=== PATIENT | female | born 1990 | race Caucasian/White ===

== ENCOUNTER 2021-09-17 17:51 | Inpatient (IN) | payer BC ==
[~2021-09-17] VITALS: Ht 165.1 cm; Wt 59.4 kg
--- NOTE | 2021-09-17 18:19 | NUR ---
URINE COLLECTED AND SENT TO THE LAB
[2021-09-17] MEDS ORDERED: IV NS 0.9% 1,000 ML BAG IV ONE (18:30)
[2021-09-17] MEDS ORDERED: ONDANSETRON HCL/PF - ER 4 MG/2 ML VIAL IV ONE (18:30)
[2021-09-17] MEDS ORDERED: MORPHINE SULFATE INJ 2 MG/ML DISP.SYRIN IV ONE ×2 (18:30→19:30)
[2021-09-17 18:42] LABS: BILIRUBIN,URINE NEGATIVE (NEGATIVE); COLOR,URINE YELLOW (YELLOW); LEUKOCYTE ESTERASE ,URINE NEGATIVE (NEGATIVE); NITRITE, URINE NEGATIVE (NEGATIVE); PROTEIN,URINE NEGATIVE (NEGATIVE); UGLUCOSE NEGATIVE (NEGATIVE); UROBILINOGEN,URINE 0.2 EU/dL (0.2)
[2021-09-17] MEDS ORDERED: ONDANSETRON HCL/PF 4 MG/2 ML VIAL ONE (18:46)
[2021-09-17] MEDS ORDERED: MORPHINE SULFATE INJ 4 MG/ML DISP.SYRIN ONE (18:47)
[2021-09-17 18:57] LABS: BACTERIA,URINE Few /HPF (None Seen); SQUAMOUS EPITHELIAL CELL,UR Few /HPF (None Seen); WBC,URINE 0-2 /HPF (0-3)
[2021-09-17 19:18] LABS: BASOPHILS % (AUTO) 0.4 % (0.0-2.0); EOSINOPHILS % (AUTO) 0.1 % (0.0-6.0); HEMATOCRIT 43 % (33-45); HEMOGLOBIN 14.1 g/dL (11.5-14.8); LYMPHOCYTES # (AUTO) 1.7 K/uL (0.8-4.8); LYMPHOCYTES % (AUTO) 15.5 % (20.0-44.0); MEAN CORPUSCULAR HGB CONC 33 g/dl (31.0-36.0); MEAN CORPUSCULAR VOLUME 92 fL (82-100); MONOCYTES # (AUTO) 0.5 K/uL (0.1-1.30); MONOCYTES % (AUTO) 4.9 % (2.0-12.0); NEUTROPHILS # (AUTO) 8.6 K/uL (1.8-8.9); NEUTROPHILS % (AUTO) 79.1 % (43.0-81.0); PLATELET COUNT (AUTO) 177 K/uL (150-450); RED BLOOD CELL COUNT(AUTO) 4.68 MIL/uL (4.0-5.2); WHITE BLOOD COUNT (AUTO) 10.9 K/uL (4.3-11.0)
[2021-09-17 19:20] LABS: CALCIUM, SERUM 8.7 mg/dL (8.5-10.1); CREATININE 0.8 mg/dL (0.6-1.3); POTASSIUM 3.2 mmol/L (3.5-5.1)
[2021-09-17] MEDS ORDERED: MORPHINE SULFATE INJ 2 MG/ML DISP.SYRIN ONE (19:27)
--- NOTE | 2021-09-17 19:35 | NUR ---
pt bib self c/o rlq pain that is constant and non radiating since 09/16 1900. no alleviating factors. pt breathing even and unlabored changed into a gown and placed on monitor all vital signs stable.WEB SITE ADMIN was at bedside for eval.
[2021-09-17] MEDS ORDERED: FLAGYL/NS RTU 500 MG/100 ML PIGGYBACK IV ONE (20:00)
[2021-09-17] MEDS ORDERED: POTASSIUM CHLORIDE 20 MEQ TAB.PRT.SR PO ONE ×2 (20:00→20:18)
[2021-09-17] MEDS ORDERED: CEFTRIAXONE 1GM BAG (ER ONLY) 1 GM/50 ML PIGGYBACK IV ONE (20:00)
[2021-09-17] MEDS ORDERED: POTASSIUM CL. PREMIX PERIPHER. 50 ML ONE ×2 (20:18→22:15)
[2021-09-17] MEDS ORDERED: CEFTRIAXONE 2 G in IV D5W 100 ML IV SCH (20:30)
[2021-09-17] MEDS: POTASSIUM CL. PREMIX PERIPHER. 50 ML IV SCH ×2 (20:35→22:25)
[2021-09-17] MEDS ORDERED: METRONIDAZOLE 500MG/ NS 100ML 100 ML IV ONE (21:02)
[2021-09-17] MEDS ORDERED: HYDROMORPHONE 1 MG/1 ML DISP.SYRIN IV ONE (21:30)
[2021-09-17] MEDS ORDERED: HYDROMORPHONE 1 MG/1 ML DISP.SYRIN ONE (21:42)
--- NOTE | 2021-09-17 21:55 | NUR ---
called to give report rn will call back
--- NOTE | 2021-09-17 22:09 | NUR ---
REPORT GIVEN TO TONY MARTÍNEZ
[2021-09-17] MEDS ORDERED: ZOLPIDEM TARTRATE 5 MG TABLET PO PRN (22:30)
[2021-09-17] MEDS ORDERED: ACETAMINOPHEN 325 MG TABLET PO PRN (22:30)
[2021-09-17] MEDS ORDERED: ONDANSETRON HCL/PF 4 MG/2 ML VIAL IVP PRN (22:30)
[2021-09-17] MEDS ORDERED: Z GUARD REMEDY 2 OZ OINT TP PRN (22:30)
--- NOTE | 2021-09-17 22:46 | NUR ---
PT TRANSPORTED BY EMT TO [address] [facility] ALL VSS
--- NOTE | 2021-09-17 22:50 | NUR ---
MS DISPLAY AND BANNER DESIGNER NOTE RECEIVED PT FROM E.Eryn VIA [facility] TO [id number]. DX: ACUTE APPENDICITIS. PT ALERT, A/OX4, ABLE TO MAKE NEEDS KNOWN. PT AMBULATED TO BR WITH STEADY GAIT. VERBALIZED ABD. PAIN IS TOLERABLE AT THIS TIME. DENIES SOB. ON ROOM AIR AND CLAIRE WELL. RESPIRATIONS EVEN/UNLABORED. IV SITE: L-AC #20 INTACT/PATENT/FLUSHES WELL. ORIENTED TO ROOM AND STAFF AND INSTRUCTED TO USE CALL LIGHT FOR ANY ASSISTANCE NEEDED. PT VERBALIZED UNDERSTANDING. NO ACUTE DISTRESS NOTED. SAFETY MEASURES IN PLACE, BED IN LOWEST LOCKED POSITION, S/R UP X2, CALL LIGHT WITHIN REACH. WILL CONT TO MONITOR.
--- NOTE | 2021-09-17 23:55 | NUR ---
RN NOTE ROOM CHANGE/TRANSFER TO [id number] PER [employer]OLIN PLANT OPERATOR
--- NOTE | 2021-09-18 | NUR ---
RN NOTE TEMP 102.1. DENIES CHILLS. DENIES SOB. PT STATES, "I HAD THE COVID BOOSTER YESTERDAY." COOLING MEASURES WITH COLD COMPRESS TO FOREHEAD ONLY PER PT REQUEST. TYLENOL 650MG PO GIVEN. WILL CONT TO MONITOR.
[2021-09-18] MEDS ORDERED: PIPERACILLIN /TAZOBACTAM 3.375 G VIAL IV ONE ×2 (00:08→05:40)
[2021-09-18] MEDS: IV LR 1000 ML 1,000 ML IV PRN ×2 (00:12→18:21)
[2021-09-18] MEDS: PIPERACILLIN /TAZOBACTAM 3.375 G in IV D5W 50 ML IV SCH ×5 (00:13→23:02)
[2021-09-18] MEDS: MORPHINE SULFATE INJ 2 MG/ML DISP.SYRIN IV PRN ×3 (02:21→12:53)
--- NOTE | 2021-09-18 04:16 | NUR ---
RN NOTE TEMP 98.2
[2021-09-18 06:42] LABS: BASOPHILS % (AUTO) 0.5 % (0.0-2.0); EOSINOPHILS % (AUTO) 0.5 % (0.0-6.0); HEMATOCRIT 35 % (33-45); HEMOGLOBIN 11.8 g/dL (11.5-14.8); LYMPHOCYTES # (AUTO) 1.6 K/uL (0.8-4.8); LYMPHOCYTES % (AUTO) 19.9 % (20.0-44.0); MEAN CORPUSCULAR HGB CONC 34 g/dl (31.0-36.0); MEAN CORPUSCULAR VOLUME 92 fL (82-100); MONOCYTES # (AUTO) 0.5 K/uL (0.1-1.30); MONOCYTES % (AUTO) 5.9 % (2.0-12.0); NEUTROPHILS # (AUTO) 5.8 K/uL (1.8-8.9); NEUTROPHILS % (AUTO) 73.2 % (43.0-81.0); PLATELET COUNT (AUTO) 136 K/uL (150-450); RED BLOOD CELL COUNT(AUTO) 3.78 MIL/uL (4.0-5.2)
--- NOTE | 2021-09-18 06:45 | NUR ---
MS RN CLOSING NOTE PT RESTING IN BED, EASILY AROUSABLE TO STIMULI. RESPIRATIONS EVEN AND UNLABORED. REPORTS TOLERABLE PAIN AT THIS TIME. IV SITE: L-AC #20 INTACT/PATENT, RUNNING LR @80ML/HR. CLAIRE WELL. NO ACUTE DISTRESS NOTED. SAFETY MEASURES MAINTAINED. ALL NEEDS ATTENDED TO.
[2021-09-18 06:56] LABS: CALCIUM, SERUM 7.8 mg/dL (8.5-10.1); CREATININE 0.7 mg/dL (0.6-1.3); MAGNESIUM 2.2 mg/dL (1.8-2.4); PHOSPHORUS 2.7 mg/dL (2.5-4.9); POTASSIUM 4.3 mmol/L (3.5-5.1)
[2021-09-18] MEDS ORDERED: [UNRECOGNIZED DRUG - CODE] VG (07:13)
--- NOTE | 2021-09-18 07:30 | NUR ---
MS RN OPENING NOTES RECEIVED PATIENT ON BED, AWAKE AND A/O X4. ON ROOM AIR TOLERATING WELL. NO SOB NOTED. NOT IN DISTRESS. WITH COMPLAINTS OF PAIN AT RLQ AT THE SCALE OF 9/10. COMFORT MEASURES PROVIDED. WITH IV ACCESS AT LEFT AC G20 WITH IVF PLR AT 80ML/HR AND AT RIGHT AC, SALINE LOCKED. BOTH IV LINES ARE PATENT AND INTACT. FOR APPENDECTOMY TODAY. SAFETY MEASURES IN PLACE. CALL LIGHT WITHIN REACH. BED ON LOWEST AND LOCKED POSITION, SIDE RAILS UP X2. WILL CONTINUE TO MONITOR.
[2021-09-18] MEDS ORDERED: BUPIVACAINE MPF 0.5% W/EPI INJ 30 ML VIAL ONE (07:45)
[2021-09-18] MEDS ORDERED: LIDOCAINE 1% INJ 50 ML MDV IJ ONE (07:45)
[2021-09-18] MEDS ORDERED: BACITRACIN OPHTH OINT 3.5 GM TUBE ONE (07:47)
[2021-09-18] MEDS ORDERED: BACITRACIN ZINC OINT (15 GM) 15 GM TUBE TP ONE (07:47)
[2021-09-18 08:00] VITALS: BP 97/61
--- NOTE | 2021-09-18 13:42 | NUR ---
RN NOTES PATIENT WAS PICKED UP BY OR PERSONNEL FOR EXPLORATORY LAPAROTOMY VS POSSIBLE OPEN APPENDECTOMY PROCEDURE. CONSENTS ALREADY SIGNED AND ALREADY DID PREOP CHECKLIST.
[2021-09-18] MEDS ORDERED: ROCURONIUM BROMIDE 50 MG/5 ML ONE (14:01)
[2021-09-18] MEDS ORDERED: MIDAZOLAM HCL 2 MG/2ML VIAL ONE (14:01)
[2021-09-18] MEDS ORDERED: FENTANYL PF 100MCG/2ML AMPUL ONE (14:01)
[2021-09-18] MEDS ORDERED: SCOPOLAMINE PATCH 1 MG/72HR TD ONE (14:02)
[2021-09-18 15:55] VITALS: BP 99/50
--- NOTE | 2021-09-18 15:55 | NUR ---
MS RN NOTES RECEIVED PATIENT FROM OR ENDORSED BY NURSE COE POST APPENDECTOMY. CHECKED VITAL SIGNS: BP-92/51, KY-85, RR-18, TEMP-98.7 AND O2 SAT-100%. PATIENT IS RESTING AND IS EASY TO AROUSE. WILL CONTINUE TO MONITOR.
[2021-09-18 16:10] VITALS: BP 96/52
[2021-09-18] MEDS: IBUPROFEN 400 MG TABLET PO SCH ×2 (16:16→23:01)
[2021-09-18] MEDS: ACETAMINOPHEN 325 MG TABLET PO SCH ×2 (16:16→23:01)
[2021-09-18] MEDS: GABAPENTIN 100 MG CAPSULE PO SCH ×2 (16:16→23:01)
[2021-09-18 16:55] VITALS: BP 99/50
[2021-09-18 17:00] VITALS: BP 99/50
--- NOTE | 2021-09-18 18:28 | NUR ---
MS RN CLOSING NOTES PATIENT ON BED, AWAKE AND A/O X4 WITH MOM AND DAD AT BEDSIDE. S/P APPENDECTOMY. ON ROOM AIR TOLERATING WELL. NO SOB NOTED. NOT IN DISTRESS. WITH NO COMPLAINTS OF PAIN AT THIS TIME. COMFORT MEASURES PROVIDED. WITH IV ACCESS AT LEFT AC G20 WITH IVF PLR AT 80ML/HR AND AT RIGHT AC, SALINE LOCKED. BOTH IV LINES ARE PATENT AND INTACT. SAFETY MEASURES IN PLACE. CALL LIGHT WITHIN REACH. BED ON LOWEST AND LOCKED POSITION, SIDE RAILS UP X2. WILL ENDORSE TO NEXT SHIFT FOR BRET.
--- NOTE | 2021-09-18 19:50 | NUR ---
Patient awake, A&Ox4. Resting in bed, family member at bedside. Denies nausea at this time. States that pain is minimal and tolerable at this time. LAC 20G IV running LR at 80cc/hr. Will continue to monitor patient.
[2021-09-18 20:00] VITALS: BP 98/66
[2021-09-19] MEDS: PIPERACILLIN /TAZOBACTAM 3.375 G in IV D5W 50 ML IV SCH ×2 (05:23→12:00)
[2021-09-19] MEDS: IV LR 1000 ML 1,000 ML IV PRN (06:01)
[2021-09-19 06:51] LABS: BASOPHILS % (AUTO) 0.2 % (0.0-2.0); EOSINOPHILS % (AUTO) 0.1 % (0.0-6.0); HEMATOCRIT 32 % (33-45); HEMOGLOBIN 10.7 g/dL (11.5-14.8); LYMPHOCYTES # (AUTO) 0.9 K/uL (0.8-4.8); LYMPHOCYTES % (AUTO) 16.5 % (20.0-44.0); MEAN CORPUSCULAR HGB CONC 34 g/dl (31.0-36.0); MEAN CORPUSCULAR VOLUME 91 fL (82-100); MONOCYTES # (AUTO) 0.3 K/uL (0.1-1.30); NEUTROPHILS % (AUTO) 77.2 % (43.0-81.0); PLATELET COUNT (AUTO) 144 K/uL (150-450); RED BLOOD CELL COUNT(AUTO) 3.49 MIL/uL (4.0-5.2); WHITE BLOOD COUNT (AUTO) 5.2 K/uL (4.3-11.0)
--- NOTE | 2021-09-19 07:00 | NUR ---
Patient has been A&Ox4. VSS. Not needing any PRN pain medication overnight. Up and walking. motivated to go home. Denies weakness. No overnight events.
--- NOTE | 2021-09-19 07:02 | NUR ---
patient also denies nausea. tolerating full liquids well.
[2021-09-19 07:05] LABS: CALCIUM, SERUM 7.8 mg/dL (8.5-10.1); CREATININE 0.7 mg/dL (0.6-1.3); MAGNESIUM 2.1 mg/dL (1.8-2.4); PHOSPHORUS 3.1 mg/dL (2.5-4.9); POTASSIUM 4.1 mmol/L (3.5-5.1)
--- NOTE | 2021-09-19 07:37 | NUR ---
RN OPENING NOTE- RECEIVED PATIENT IN ROOM. , AWAKE AND A/O X4. ON ROOM AIR TOLERATING WELL. NO SOB NOTED. DENIES PAIN AT PRESENT TIME. .IV ACCESS AT LEFT AC G20 WITH IVF LR AT 80ML/HR AND AT IV SITE RIGHT AC, . BOTH IV LINES ARE PATENT AND INTACT. . SAFETY MEASURES IN PLACE. CALL LIGHT WITHIN REACH. BED ON LOWEST AND LOCKED POSITION, SIDE RAILS UP X2. WILL CONTINUE TO MONITOR.
[2021-09-19 08:00] VITALS: BP 100/59
[2021-09-19] MEDS: ACETAMINOPHEN 325 MG TABLET PO SCH (08:51)
[2021-09-19] MEDS: GABAPENTIN 100 MG CAPSULE PO SCH (08:51)
[2021-09-19] MEDS: IBUPROFEN 400 MG TABLET PO SCH (08:52)
--- NOTE | 2021-09-19 12:57 | NUR ---
RN NOTE- PT DC HOME INTO CARE OF FAMILY. VS STABLE, PO INTAKE GOOD, DIET ADVANCED TO SOLID REG DIET. PT W BOWEL SOUNDS, FLATULENCE AND IS VOIDING , PT IV HEP LOCK REMOVED, ID WRISTBAND REMOVED, AFTERCARE REVIEWED W PT AND VERBALIZED UNDERSTANDING. ESCORTED OFF UNIT BY THIS RN.
== END 2021-09-19 13:09 | disposition home or self-care (01) | DRG 336 ==
LOC: ER 17:53 → MED 21:41
PROVIDERS: ADMIT Nurse Practitioner Acute Care; ATTEND Student in an Organized Health Care Education/Training Program
PROC: 0DTJ4ZZ Resection of Appendix, Percutaneous Endoscopic Approach (ICD-10-PCS; principal; 2021-09-18)
PROC: 0DNU3ZZ Release Omentum, Percutaneous Approach (ICD-10-PCS; 2021-09-18)
DX: K35.80 Unspecified acute appendicitis (principal); E87.1 Hypo-osmolality and hyponatremia; E87.6 Hypokalemia; K66.0 Peritoneal adhesions (postprocedural) (postinfection); Z98.890 Other specified postprocedural states; K38.1 Appendicular concretions; Z80.3 Family history of malignant neoplasm of breast; Z80.6 Family history of leukemia; Z80.8 Family history of malignant neoplasm of other organs or systems; Z82.49 Family history of ischemic heart disease and other diseases of the circulatory system; Z83.3 Family history of diabetes mellitus; Z20.822 Contact with and (suspected) exposure to COVID-19
CPT/HCPCS: 36415; 80048-TC; 80061-TC; 81001; 83735-TC; 84100-TC; 84703-TC; 85025-TC; 85610-TC; 85730-TC; 86850-TC; 87081-TC; 88304-TC; C9803; G0378; J0330; J0696; J1100; J1170; J1885; J2250; J2270; J2405; J2543; J2704; J3010; J3480; J3490; J7030; J7060; J7120